=== PATIENT | female | born 2000 | race African-American/Black ===

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

== ENCOUNTER 2021-11-07 20:02 | Inpatient (IN) ==
[2021-11-07 20:46] LABS: Bilirubin,Urine Negative (Negative); Blood, Urine Moderate mg/dL (Negative); Glucose,Urine (UA) Negative (Negative); Ketones,Urine Negative (Negative); Mucus,Urine Few /LPF (Occasional); Nitrite,Urine Negative (Negative); Protein,Urine Negative; RBC,Urine 1 /HPF (0-4); Squamous Epithelial Cell,Urine Moderate /HPF (0-10); Urine Appearance CLEAR (Clear); Urine Color Yellow (Yellow); Urine Specific Gravity 1.016 (1.001-1.035); Urine Urobilinogen < 2.0 EU/DL (<2.0)
[2021-11-07] MEDS ORDERED: MEPERIDINE 50 MG/1 ML VIAL IV PRN (20:55)
[2021-11-07] MEDS ORDERED: BUTORPHANOL 2 MG/ML VIAL IV PRN (20:55)
[2021-11-07] MEDS ORDERED: ONDANSETRON 4 MG/2 ML VIAL IV PRN (20:55)
[2021-11-07] MEDS ORDERED: NALOXONE 0.4 MG/ML VIAL IV PRN (20:57)
[2021-11-07] MEDS ORDERED: ePHEDrine 50 MG/ML VIAL IV PRN (20:57)
[2021-11-07] MEDS ORDERED: LACTATED RINGERS 250 ML IV PRN (20:57)
[2021-11-07] MEDS ORDERED: diphenhydrAMINE 50 MG/1 ML VIAL IV PRN ×2 (20:57)
[2021-11-07] MEDS ORDERED: hydrOXYzine HCL 25 MG/1 ML VIAL IM PRN (20:57)
[2021-11-07] MEDS ORDERED: fentaNYL 2 MCG/ROPIV 0.2% EPID 100 ML EPIDURAL SCH (21:00)
[2021-11-07] MEDS ORDERED: LACTATED RINGERS 1,000 ML IV SCH (21:00)
[2021-11-07] MEDS ORDERED: OXYTOCIN/LR 20 UNIT/1,000 ML BAG IV SCH (21:00)
[2021-11-07 21:25] LABS: Basophils % 0.1 % (0.0-0.8); Eosinophils % 0.3 % (0.00-10.9); Hematocrit 34.9 VOL% (35.7-47.0); Hemoglobin 11.4 GM/DL (12.0-16.0); Immature Granulocytes % 0.8 %; Immature Granulocytes Absolute 0.06 #; Lymphocytes # 1.4 10*3/uL (1.4-4.0); Mean Corpuscular HGB Conc 32.7 GM/DL (32-36); Mean Platelet Volume 11.4 FL (9.6-12.0); Monocytes % 7.6 % (1.7-12.7); Neutrophils % 72.2 % (38.7-73.9); Platelet Count 182 T/CUMM (130-400); Red Blood Count 4.01 MC/CUMM (3.8-5.5); Red Cell Distribution Width 15.4 % (9.3-17.3); White Blood Count 7.5 T/CUMM (4-12)
[2021-11-07] MEDS ORDERED: FAMOTIDINE 20 MG/2 ML VIAL IV ONE (21:48)
[2021-11-07] MEDS ORDERED: PROMETHAZINE 25 MG/1 ML VIAL IM ONE (21:48)
[2021-11-07] MEDS ORDERED: CITRIC ACID/SODIUM CITRATE 30 ML UDCUP PO ONE (21:48)
[2021-11-07] MEDS ORDERED: LACTATED RINGERS 1,000 ML IV PRN (21:52)
[2021-11-08] MEDS ORDERED: METHYLERGONOVINE 0.2 MG/1 ML AMP ONE (03:49)
[2021-11-08] MEDS ORDERED: OXYTOCIN/LR 20 UNIT/1,000 ML BAG IV ONE ×2 (03:49→04:44)
[2021-11-08] MEDS ORDERED: CARBOPROST TROMETHAMINE 250 MCG/ML AMP IM ONE (03:49)
[2021-11-08] MEDS ORDERED: SODIUM CHLORIDE 0.9% 0 ML IV ONE (03:49)
[2021-11-08] MEDS ORDERED: TRANEXAMIC ACID 1,000 MG/10 ML VIAL ONE (03:49)
[2021-11-08] MEDS ORDERED: miSOPROStoL 200 MCG TABLET ONE (03:49)
[2021-11-08 04:40] LABS: Cord Venous Blood HCO3 23.7 MMOL/L; Cord Venous Blood PCO2 40.3 MMHG; Cord Venous Blood PO2 38.9
[2021-11-08 04:42] LABS: Bilirubin,Urine Negative (Negative); Blood, Urine Negative (Negative); Glucose,Urine (UA) Negative (Negative); Ketones,Urine Negative (Negative); Mucus,Urine Many /LPF (Occasional); Nitrite,Urine Negative (Negative); Protein,Urine 30 MG/DL; Squamous Epithelial Cell,Urine Occasional /HPF (0-10); Urine Appearance CLEAR (Clear); Urine Color Yellow (Yellow); Urine Specific Gravity 1.025 (1.001-1.035)
[2021-11-08] MEDS ORDERED: LANOLIN 50% CREAM 0.3 OZ TUBE TOP PRN (04:44)
[2021-11-08] MEDS ORDERED: MEASLES/MUMPS/RUBELLA VACCINE 0.5 ML VIAL SUBCUT ONE (04:44)
[2021-11-08] MEDS ORDERED: DIPH/TET/ACEL PERT BOOSTER VACCINE 0.5 ML VIAL IM ONE (04:44)
[2021-11-08] MEDS ORDERED: RHO(D) IMMUNE GLOBULIN 300 MCG SYRINGE IM ONE (04:44)
[2021-11-08] MEDS ORDERED: WITCH HAZEL PADS 100/JAR TOP PRN (04:44)
[2021-11-08] MEDS ORDERED: HYDROCORTISONE 2.5% RECTAL CREAM 30 GM TUBE TOP PRN (04:44)
[2021-11-08] MEDS ORDERED: BENZOCAINE 20%/MENTHOL 0.5% SPRAY 56 GM CAN TOP PRN (04:44)
[2021-11-08] MEDS ORDERED: ONDANSETRON 4 MG/2 ML VIAL IV PRN (04:44)
[2021-11-08] MEDS ORDERED: BISACODYL 10 MG SUPP RECTAL PRN (04:44)
[2021-11-08] MEDS ORDERED: ACETAMINOPHEN 325 MG TABLET PO PRN (04:44)
[2021-11-08] MEDS ORDERED: oxyCODONE/ACETAMINOPHEN 5-325 MG TABLET PO PRN (04:44)
[2021-11-08] MEDS: IBUPROFEN 800 MG TABLET PO PRN ×2 (08:09→23:27)
[2021-11-08] MEDS: DOCUSATE SODIUM 100 MG CAPSULE PO SCH ×2 (09:55→20:54)
[2021-11-08] MEDS: oxyCODONE/ACETAMINOPHEN 5-325 MG TABLET PO PRN ×2 (09:55→18:18)
[2021-11-09 05:57] LABS: Basophils % 0.4 % (0.0-0.8); Eosinophils # 0.1 10*3/uL (0.0-0.87); Eosinophils % 0.8 % (0.00-10.9); Hematocrit 34.3 VOL% (35.7-47.0); Hemoglobin 10.7 GM/DL (12.0-16.0); Immature Granulocytes % 0.6 %; Immature Granulocytes Absolute 0.05 #; Mean Corpuscular HGB Conc 31.2 GM/DL (32-36); Mean Corpuscular Volume 89.3 FL (87-102); Mean Platelet Volume 11.7 FL (9.6-12.0); Monocytes % 6.6 % (1.7-12.7); Neutrophils % 67.6 % (38.7-73.9); Platelet Count 183 T/CUMM (130-400); Red Blood Count 3.84 MC/CUMM (3.8-5.5); Red Cell Distribution Width 15.7 % (9.3-17.3); White Blood Count 8.4 T/CUMM (4-12)
[2021-11-09] MEDS: DOCUSATE SODIUM 100 MG CAPSULE PO SCH (09:27)
[2021-11-09] MEDS: IBUPROFEN 800 MG TABLET PO PRN (11:38)
[2021-11-09 13:16] VITALS: BP 114/53
== END 2021-11-09 16:35 | disposition home or self-care (01) | DRG 560 ==
LOC: N.LDOUT 20:02 → N.LD 20:06 → N.OB 11-08 09:35
PROVIDERS: ADMIT Obstetrics & Gynecology; ATTEND Obstetrics & Gynecology